=== PATIENT | female | born 1965 | race Hispanic/Latino ===

== ENCOUNTER 2017-07-31 17:32 | Emergency (ER) | payer BC ==
[~2017-07-31] VITALS: Ht 147.3 cm; Wt 64.9 kg
[2017-07-31] MEDS ORDERED: ACETAMINOPHEN 325 MG TAB PO ONE (18:30)
[2017-07-31 19:41] VITALS: BP 119/84
== END 2017-07-31 19:36 | disposition home or self-care (01) ==
LOC: FSED 17:32
DX: J01.00 Acute maxillary sinusitis, unspecified (principal); B95.5 Unspecified streptococcus as the cause of diseases classified elsewhere
CPT/HCPCS: 71046; 80048; 81003; 85025; 99283